=== PATIENT | male | born 1990 | race American Indian/Alaskan Native ===

== ENCOUNTER 2018-01-26 10:02 | Emergency (ER) | payer OTHER ==
[2018-01-26 10:10] VITALS: BMI 24.3
[2018-01-26 10:19] VITALS: BP 127/78; PULSE 84; RESP 18; TEMP 98.4; O2SAT 98
--- NOTE | 2018-01-26 10:45 | C.PDOC ---
History Of Present Illness Pt had I&D of scrotal abscess at [facility] [place]. Pt states that he is still in pain and felt unable to go back to work today. Pt was placed on Keflex at [facility] [place]. Time Seen by Provider: 01/26/18 10:26 Chief Complaint (Nursing): Abnormal Skin Integrity History Per: Patient Onset/Duration Of Symptoms: Days (3) Current Symptoms Are (Timing): Still Present Location Of Injury: Anterior: Perineum (Scrotum) Quality Of Symptoms: Painful, Swollen, Draining Severity: Moderate Additional History Per: Prior Records Past Medical History Reviewed: Historical Data, Nursing Documentation, Vital Signs Vital Signs: Last Vital Signs Temp 98.4 F 01/26/18 10:10 Pulse 84 01/26/18 10:10 Resp 18 01/26/18 10:10 BP 127/78 01/26/18 10:10 Pulse Ox 98 01/26/18 10:10 - Medical History PMH: Asthma, Sexually Transmitted Disease - [facility] Procedures EXC LES SOFT TISSUE NEC (09/14/13) EXCIS DEBRIDE OF WOUND, INFECT, OR BURN (09/14/13) Family History: States: Unknown Family Hx - Social History Hx Tobacco Use: Yes Hx Alcohol Use: Yes Hx Substance Use: Yes - Immunization History Hx Tetanus Toxoid Vaccination: No Hx Influenza Vaccination: No Hx Pneumococcal Vaccination: No Review Of Systems Except As Marked, All Systems Reviewed And Found Negative. Constitutional: Negative for: Fever, Chills, Weakness ENT: Negative for: Throat Pain Respiratory: Negative for: Shortness of Breath Gastrointestinal: Negative for: Vomiting, Abdominal Pain, Diarrhea Genitourinary: Positive for: Scrotal Pain. Negative for: Dysuria, Penile Discharge, Penile Pain Musculoskeletal: Negative for: Neck Pain, Back Pain Neurological: Negative for: Weakness, Numbness Physical Exam - Physical Exam Appears: Non-toxic, No Acute Distress Skin: Warm, Dry Head: Atraumatic, Normacephalic Eye(s): bilateral: Normal Inspection, PERRL, EOMI Neck: Normal ROM, Supple Gastrointestinal/Abdominal: Soft, No Tenderness Male Genital: No Inguinal Swelling, Scrotal Swelling (wound from I&D present), Circumcised Extremity: Normal ROM Neurological/Psych: Oriented x3, Normal Motor, Normal Sensation ED Course And Treatment O2 Sat by Pulse Oximetry: 98 Pulse Ox Interpretation: Normal Disposition Counseled Patient/Family Regarding: Diagnosis, Need For Followup, Rx Given - Disposition Disposition: HOME/ ROUTINE Disposition Time: 10:48 Condition: STABLE Additional Instructions: Follow up with your Urologist within 1 week for further evaluation and treatment. Return to the ER if you develop fever, worsening of symptoms or if you have any other concerns. Prescriptions: Sulfamethoxazole/Trimethoprim [Bactrim DS 800 mg-160 mg] 1 tab PO BID #14 tab Instructions: Abscess (ED) - Clinical Impression Clinical Impression: Scrotal abscess
== END 2018-01-26 10:57 | disposition home or self-care (01) ==
LOC: C.ER 10:02
DX: N49.2 Inflammatory disorders of scrotum (principal)